=== PATIENT | female | born 1990 | race Caucasian/White ===

== ENCOUNTER 2017-09-28 18:30 | Emergency (ER) | payer OTHER ==
[~2017-09-28] VITALS: Ht 152.4 cm; Wt 49.9 kg
[~2017-09-28 18:30] MED LIST: BACTRIM DS TAB1 EACH PO; IBUPROFEN 800800 M1 PO; MACROBID 100 M100 M1 PO; NAPROSYN500 MG PO; NOHOMEMEDICATIONS; NORFLEX100 MG PO; PHENERGAN 25 MG25 MG PO; PYRIDIUM200 MG PO; ZOFRAN ODT4 MG PO
[2017-09-28 19:05] LABS: ABSOLUTE BASOPHILS 0.1 thou/uL (0.0-0.2); ABSOLUTE EOSINOPHILS 0.1 thou/uL (0.0-0.7); ABSOLUTE LYMPHOCYTES 2.4 thou/uL (0.8-5.3); ABSOLUTE MONOCYTES 0.5 thou/uL (0.0-1.2); ABSOLUTE NEUTROPHILS 6.5 thou/uL (1.6-8.1); BASOPHILS 1.3 %; EOSINOPHILS 1.5 %; HEMATOCRIT 39.8 % (37.0-47.0); LYMPHOCYTES 24.8 %; MCH 27.5 pg (26.0-34.0); MCHC 32.8 g/dL (28.0-37.0); MCV 83.8 fL (80.0-100.0); MONOCYTES 5.5 %; MPV 8.9 fl. (7.2-11.1); NUCLEATED RBCS 0 /100WBC; PLATELET COUNT* 258 thou/uL (150-400); POLYS 66.9 %; RBC 4.74 mil/uL (4.20-5.00); WBC 9.8 thou/uL (4.0-11.0)
[2017-09-28 19:13] LABS: APTT 21.5 Seconds (25.0-31.3); CALCIUM 8.7 mg/dL (8.5-10.1); INR 1.1; POTASSIUM 3.7 mmol/L (3.5-5.1); PROTIME 10.3 Seconds (9.20-11.50)
[2017-09-28 19:17] LABS: TOTAL BILIRUBIN 0.2 mg/dL (<0.1-1.0); TOTAL PROTEIN 7.5 g/dL (6.4-8.2)
[2017-09-28 19:30] LABS: ACETAMINOPHEN < 2 ug/mL (10-30); ALCOHOL < 10 mg/dL (<10); SALICYLATE < 2.8 mg/dL (2.8-20.0)
[2017-09-28 20:43] LABS: URINE BILIRUBIN NEGATIVE (Negative); URINE BLOOD NEGATIVE (Negative); URINE CLARITY CLEAR; URINE COLOR YELLOW; URINE GLUCOSE-RANDOM 2+ (Negative); URINE KETONES NEGATIVE (Negative); URINE LEUKOCYTES-REFLEX NEGATIVE (Negative); URINE NITRITE-REFLEX NEGATIVE (Negative); URINE PROTEIN 1+ (Negative); URINE UROBILINOGEN 0.2 E.U./dl (0.2-1.0)
[2017-09-28 20:58] LABS: AMP/METHAMP POSITIVE (Negative); BARBITURATES Negative (Negative); BENZODIAZEPINES Negative (Negative); COCAINE Negative (Negative); METHADONE Negative (Negative); OPIATES Negative (Negative); PCP Negative (Negative); THC Negative (Negative)
[2017-09-28 21:50] VITALS: BP 142/94
--- NOTE | 2017-09-29 16:35 | EKG ---
[place] [address] ELECTROCARDIOGRAM REPORT Name: LISBET BEDOLLA Room: [facility]#: [id number] Admission: 09/28/17 Attend Phys: Discharge: 09/28/17 Date of : [birth year] Report #: [id number] THIS REPORT FOR: //name// [facility] ED Test Date: 2017-09-28 Test Time: 18:45:42 Pat Name: LISBET BEDOLLA Department: Room: Gender: F Senior Field Service Engineer: JOSE : 1990 Requested By: Rickie Baker Order Number: [id number] MD: Juan Ramon Ron Measurements Intervals [place] Rate: 98 P: 68 MD: 133 QRS: 79 QRSD: 89 T: 47 QT: 371 QTc: 474 Interpretive Statements Sinus rhythm No previous ECG available for comparison Electronically Signed On 09-29-2017 16:35:18 CDT by Juan Ramon Ron [email or web address] <ELECTRONICALLY SIGNED> By: Juan Ramon Ron MD, [facility] 09/29/17 1635 1845 1845 Juan Ramon Ron MD, FACC /EPI
== END 2017-09-28 21:50 | disposition home or self-care (01) ==
LOC: M.ERS 18:30
PROVIDERS: Family Medicine
DX: T50.991A Poisoning by other drugs, medicaments and biological substances, accidental (unintentional), initial encounter (principal); F15.10 Other stimulant abuse, uncomplicated; Z88.1 Allergy status to other antibiotic agents; Y92.481 Parking lot as the place of occurrence of the external cause

== ENCOUNTER 2018-05-24 17:39 | Emergency (ER) | payer OTHER ==
[~2018-05-24] VITALS: Ht 152.4 cm; Wt 48.5 kg
[2018-05-24] MEDS ORDERED: MEDROLDOSEPACK PO (18:54)
[2018-05-24] MEDS ORDERED: ACETAMINOPHEN-1 EAC1 PO (18:54)
[2018-05-24] MEDS ORDERED: ROBAXIN 750 MG750 M1 PO (18:54)
[2018-05-24] MEDS ORDERED: NABUMETONE 750750 M1 PO (18:54)
[2018-05-24 19:15] VITALS: BP 0/0
== END 2018-05-24 19:15 | disposition left against medical advice (07) ==
LOC: M.ERS 17:39
DX: S46.811A Strain of other muscles, fascia and tendons at shoulder and upper arm level, right arm, initial encounter (principal); X58.XXXA Exposure to other specified factors, initial encounter; Y93.89 Activity, other specified; Y92.89 Other specified places as the place of occurrence of the external cause; Y99.8 Other external cause status; Z88.1 Allergy status to other antibiotic agents